=== PATIENT | female | born 1990 | race Caucasian/White ===

== ENCOUNTER 2016-12-27 21:52 | Emergency (ER) | payer SELFPAY ==
[~2016-12-27 21:52] MED LIST: PROZAC40 MG PO
[2016-12-28 03:27] LABS: ASCORBIC ACID (UR NOT ORDER) NEG (NEG); BILIRUBIN, URINE NEGATIVE (NEG); ER URINALYSIS TAT 0 Hrs 00 Mins; KETONE, URINE NEGATIVE (NEG); NITRITE (URINE) NEG (NEG); WBC (NOT ORDERED) (RFLEX) 2 (0-5)
[2016-12-28 03:30] LABS: LEUKOCYTE ESTERASE(NOT OR TRACE (NEG)
[2016-12-28 03:44] LABS: AMPHETAMINES (NOT ORD) POS (NEG); BARBITURATES (NOT ORDERED NEG (NEG); BENZODIAZEPINES (NOT ORD) NEG (NEG); CANNABINOIDS (THC) POS (NEG); COCAINE (NOT ORDERED) NEG (NEG); OPIATES NEG (NEG); PHENCYCLIDINE(PCP) NEG (NEG); TRICYCLICS NEG (NEG)
[2017-05-27] MEDS ORDERED: T3 PO (19:03)
[2017-05-27] MEDS ORDERED: *UNABLE1 (19:04)
[2017-05-28] MEDS ORDERED: ADDERALL30 MG PO (14:10)
== END 2016-12-28 05:23 | disposition home or self-care (01) ==
LOC: ER 21:52
PROVIDERS: Emergency Medicine
DX: S09.90XA Unspecified injury of head, initial encounter (principal); F15.10 Other stimulant abuse, uncomplicated; Z87.440 Personal history of urinary (tract) infections; F17.200 Nicotine dependence, unspecified, uncomplicated; Y04.0XXA Assault by unarmed brawl or fight, initial encounter; Y92.149 Unspecified place in prison as the place of occurrence of the external cause
CPT/HCPCS: 70450; 80305; 81001; 84703; 99284

== ENCOUNTER 2016-12-30 03:42 | Emergency (ER) | payer SELFPAY ==
[2017-05-27] MEDS ORDERED: T3 PO (19:03)
[2017-05-27] MEDS ORDERED: *UNABLE1 (19:04)
[2017-05-28] MEDS ORDERED: ADDERALL30 MG PO (14:10)
== END 2016-12-30 03:45 | disposition home or self-care (01) ==
LOC: ER 03:42
DX: S09.90XD Unspecified injury of head, subsequent encounter (principal); F17.200 Nicotine dependence, unspecified, uncomplicated; Z88.8 Allergy status to other drugs, medicaments and biological substances
CPT/HCPCS: 70450; 99284

== ENCOUNTER 2016-12-30 17:04 | Emergency (ER) | payer SELFPAY ==
[2017-05-27] MEDS ORDERED: T3 PO (19:03)
[2017-05-27] MEDS ORDERED: *UNABLE1 (19:04)
[2017-05-28] MEDS ORDERED: ADDERALL30 MG PO (14:10)
== END 2016-12-30 20:21 | disposition home or self-care (01) ==
LOC: ER 17:04
DX: S09.90XA Unspecified injury of head, initial encounter (principal); F17.200 Nicotine dependence, unspecified, uncomplicated; Z79.899 Other long term (current) drug therapy; X58.XXXA Exposure to other specified factors, initial encounter
CPT/HCPCS: 70551; 99284